=== PATIENT | female | born 1960 | race Two or more races ===

== ENCOUNTER 2024-07-14 09:30 | Inpatient (IN) | payer OTHER ==
[~2024-07-14] VITALS: Ht 160 cm; Wt 83.9 kg
[2024-07-14 11:28] LABS: URINE APPEARANCE Clear; URINE BILIRRUBIN Negative (NEGATIVE); URINE BLOOD Negative; URINE COLOR Yellow; URINE GLUCOSE Negative (NEGATIVE); URINE KETONE Trace (NEGATIVE); URINE LEUKOCYTE Negative; URINE NITRATE Negative; URINE PROTEIN Negative (NEGATIVE); URINE UROBILINOGEN 0.2 E.U./dl
[2024-07-14 11:32] LABS: URINE BACTERIA 1820.5 uL (0.0-1933); URINE EPITHELIAL CELLS 45.8 uL (0.0-38.8); URINE RBC 3.6 uL (0.0-20.8); URINE WBC 4.9 uL (0.0-23.2)
[2024-07-14 11:36] LABS: HEMATOCRIT 39.6 % (36.0-45.00); HEMOGLOBIN 13.5 g/dL (12.0-15.00); MEAN CELL VOLUME 90.2 fL (80.00-100.00); MEAN CORPUSCULAR HEMOGLOBIN 30.7 pg (27.00-32.0); MEAN CORPUSCULAR HGB CONC 34.1 g/dl (32.0-36.0); PLATELET COUNT 234 K/uL (150-450); RED BLOOD COUNT 4.39 M/uL (4.00-6.00); RED CELL DISTRIBUTION WIDTH 13.7 % (11.5-14.5)
[2024-07-14 11:37] LABS: URINE CAST 0.15 uL (0.0-1.40)
[2024-07-14 12:38] LABS: INR 0.99; PARTIAL THROMBOPLASTIN TIME 29.6 SECONDS (22.0-34.0); PROTHROMBIN TIME 10.8 SECONDS (9.0-11.5)
[2024-07-14 12:41] LABS: BILIRUBIN TOTAL 0.41 mg/dL (0.3-1.2); CALCIUM 9.7 mg/dL (8.5-10.1); CREATININE SERUM 0.7 mg/dL (0.55-1.02); GFR 85.07; GLOBULINA 3.3 G/DL (2.4-3.5); POTASSIUM 4.46 mEq/L (3.5-5.1); TOTAL PROTEIN 7.3 gm/dL (6.4-8.2); TSH 1.56 uIU/mL (0.358-3.74)
[2024-07-17] MEDS ORDERED: BUPIVACAINE HCL/Mpf 0.5% 10ML VIAL ONE ×2 (12:29→12:32)
[2024-07-17] MEDS ORDERED: LIDOCAINE HCL 1%/EPINEPHRINE 20ML VIAL IJ ONE ×2 (12:29→14:15)
[2024-07-17] MEDS ORDERED: CEFTRIAXONE SODIUM 2,000 MG VIAL ONE (12:30)
[2024-07-17] MEDS ORDERED: METRONIDAZOLE/SODIUM CHLORIDE 500 MG/100 ML PIGGYBACK IV ONE ×2 (12:30→14:15)
[2024-07-17] MEDS ORDERED: CEFTRIAXONE SODIUM 2,000 MG VIAL IV ONE (14:15)
[2024-07-17] MEDS ORDERED: BUPIVACAINE HCL 30 ML VIAL IJ ONE (14:15)
[2024-07-17] MEDS ORDERED: RINGERS SOLUTION,LACTATED 1,000 ML IV SCH (17:15)
[2024-07-17] MEDS ORDERED: TRAMADOL HCL 50 MG TABLET PO PRN (17:15)
[2024-07-17] MEDS ORDERED: MEPERIDINE HCL/PF 25 MG/ML VIAL IM PRN (17:15)
[2024-07-17] MEDS ORDERED: ONDANSETRON HCL 2 MG/ML VIAL IV PRN (17:15)
[2024-07-17] MEDS ORDERED: ACETAMINOPHEN 500 MG GEL..CAP PO SCH (18:00)
[2024-07-17] MEDS ORDERED: ONDANSETRON HCL 2 MG/ML VIAL ONE ×2 (18:48→20:29)
[2024-07-17] MEDS ORDERED: FAMOTIDINE/PF 20 MG/2 ML VIAL ONE (20:30)
[2024-07-17] MEDS ORDERED: SIMETHICONE 125 MG CAPSULE PO SCH (21:00)
[2024-07-17] MEDS ORDERED: FAMOTIDINE/PF 20 MG/2 ML VIAL IV PUSH SCH (21:00)
[2024-07-17 21:02] LABS: HEMATOCRIT 39.7 % (36.0-45.00); HEMOGLOBIN 13.2 g/dL (12.0-15.00); MEAN CELL VOLUME 91.8 fL (80.00-100.00); MEAN CORPUSCULAR HEMOGLOBIN 30.4 pg (27.00-32.0); MEAN CORPUSCULAR HGB CONC 33.2 g/dl (32.0-36.0); PLATELET COUNT 223 K/uL (150-450); RED BLOOD COUNT 4.32 M/uL (4.00-6.00); RED CELL DISTRIBUTION WIDTH 13.3 % (11.5-14.5)
[2024-07-17 21:22] LABS: ALBUMIN 3.6 gm/dL (3.4-5.0); CALCIUM 8.8 mg/dL (8.5-10.1); CREATININE SERUM 0.81 mg/dL (0.55-1.02); GFR 71.88; MAGNESIUM 1.9 mg/dL (1.8-2.4); PHOSPHOROUS 3.4 mg/dL (2.5-4.9); POTASSIUM 3.62 mEq/L (3.5-5.1)
[2024-07-18] MEDS ORDERED: GABAPENTIN 300 MG CAPSULE PO SCH (01:00)
[2024-07-18 06:36] LABS: HEMATOCRIT 37.3 % (36.0-45.00); HEMOGLOBIN 12.8 g/dL (12.0-15.00); MEAN CELL VOLUME 89.5 fL (80.00-100.00); MEAN CORPUSCULAR HEMOGLOBIN 30.7 pg (27.00-32.0); MEAN CORPUSCULAR HGB CONC 34.4 g/dl (32.0-36.0); PLATELET COUNT 242 K/uL (150-450); RED BLOOD COUNT 4.17 M/uL (4.00-6.00); RED CELL DISTRIBUTION WIDTH 13.3 % (11.5-14.5)
[2024-07-18 07:45] LABS: ALBUMIN 3.5 gm/dL (3.4-5.0); CREATININE SERUM 0.68 mg/dL (0.55-1.02); GFR 87.96; MAGNESIUM 2.1 mg/dL (1.8-2.4); PHOSPHOROUS 2.7 mg/dL (2.5-4.9); POTASSIUM 4.62 mEq/L (3.5-5.1)
[2024-07-18] MEDS ORDERED: LACTOBACILLUS ACIDOPHILUS 1 CAP CAP PO SCH (09:00)
[2024-07-18] MEDS ORDERED: POLYETHYLENE GLYCOL 3350 17 GM BLIST.PACK PO SCH (09:00)
[2024-07-18] MEDS ORDERED: MAGNESIUM CHLORIDE 70 MG TABLET.DR PO SCH (09:00)
[2024-07-18] MEDS ORDERED: PROMETHAZINE HCL 25 MG/ML AMPUL IM STA (14:51)
[2024-07-18] MEDS ORDERED: ENOXAPARIN SODIUM 40 MG/0.4 ML SYRINGE SUBCUTANEO SCH (17:00)
[2024-07-18] MEDS ORDERED: NAPH,MB-DB/K PH,MBDB 1 PKT PACKET PO SCH (17:00)
[2024-07-18] MEDS ORDERED: FAMOtidine 20 MG TABLET PO SCH (17:00)
[2024-07-19 08:15] LABS: HEMATOCRIT 36.1 % (36.0-45.00); HEMOGLOBIN 12.4 g/dL (12.0-15.00); MEAN CELL VOLUME 89.3 fL (80.00-100.00); MEAN CORPUSCULAR HEMOGLOBIN 30.6 pg (27.00-32.0); MEAN CORPUSCULAR HGB CONC 34.3 g/dl (32.0-36.0); PLATELET COUNT 227 K/uL (150-450); RED BLOOD COUNT 4.04 M/uL (4.00-6.00); RED CELL DISTRIBUTION WIDTH 13.5 % (11.5-14.5)
[2024-07-19 08:56] LABS: ALBUMIN 3.4 gm/dL (3.4-5.0); CALCIUM 8.8 mg/dL (8.5-10.1); CREATININE SERUM 0.84 mg/dL (0.55-1.02); GFR 68.93; MAGNESIUM 2.2 mg/dL (1.8-2.4); POTASSIUM 3.56 mEq/L (3.5-5.1)
[2024-07-19] MEDS ORDERED: ENALAPRILAT DIHYDRATE 1.25 MG/ML VIAL IV PRN (16:45)
[2024-07-19] MEDS ORDERED: POTASSIUM PHOS,M-BASIC-D-BASIC 18 MM in 0.9 % SODIUM CHLORIDE 250 ML IV NR (17:30)
[2024-07-19] MEDS ORDERED: NAPH,MB-DB/K PH,MBDB 1 PKT PACKET PO SCH (17:49)
[2024-07-20 06:38] LABS: HEMATOCRIT 36.8 % (36.0-45.00); HEMOGLOBIN 12.7 g/dL (12.0-15.00); MEAN CELL VOLUME 89.1 fL (80.00-100.00); MEAN CORPUSCULAR HEMOGLOBIN 30.8 pg (27.00-32.0); MEAN CORPUSCULAR HGB CONC 34.5 g/dl (32.0-36.0); PLATELET COUNT 223 K/uL (150-450); RED BLOOD COUNT 4.12 M/uL (4.00-6.00); RED CELL DISTRIBUTION WIDTH 13.7 % (11.5-14.5)
[2024-07-20 07:00] LABS: ALBUMIN 3.2 gm/dL (3.4-5.0); CALCIUM 8.7 mg/dL (8.5-10.1); CREATININE SERUM 0.73 mg/dL (0.55-1.02); GFR 81.05; MAGNESIUM 2.3 mg/dL (1.8-2.4); PHOSPHOROUS 3.3 mg/dL (2.5-4.9); POTASSIUM 3.72 mEq/L (3.5-5.1)
== END 2024-07-20 11:21 | disposition home or self-care (01) | DRG 330 ==
LOC: SURH 07-17 07:00 → O/R 07-17 10:00 → SURG 07-17 18:08 → SURH 07-17 19:30
PROVIDERS: ADMIT Colon & Rectal Surgery; ATTEND Colon & Rectal Surgery
PROC: 0DBP4ZZ Excision of Rectum, Percutaneous Endoscopic Approach (ICD-10-PCS; 2024-07-17)
PROC: 0DNN4ZZ Release Sigmoid Colon, Percutaneous Endoscopic Approach (ICD-10-PCS; 2024-07-17)
PROC: 0DJD8ZZ Inspection of Lower Intestinal Tract, Via Natural or Artificial Opening Endoscopic (ICD-10-PCS; 2024-07-17)
PROC: 0DTN4ZZ Resection of Sigmoid Colon, Percutaneous Endoscopic Approach (ICD-10-PCS; principal; 2024-07-17 07:00)
DX: K57.20 Diverticulitis of large intestine with perforation and abscess without bleeding (principal); K56.51 Intestinal adhesions [bands], with partial obstruction; R10.32 Left lower quadrant pain; E83.39 Other disorders of phosphorus metabolism; I10 Essential (primary) hypertension; Z88.6 Allergy status to analgesic agent

== ENCOUNTER 2025-08-26 04:31 | Emergency (ER) | payer OTHER ==
[~2025-08-26] VITALS: Ht 162.6 cm; Wt 88.5 kg
[2025-08-26] MEDS ORDERED: PROMETHAZINE HCL 50 MG/ML AMPUL IM STA (05:44)
[2025-08-26] MEDS ORDERED: FAMOTIDINE/PF 20 MG/2 ML VIAL IV PUSH STA (05:44)
[2025-08-26] MEDS ORDERED: 0.9 % SODIUM CHLORIDE 1,000 ML IV ONE (05:45)
[2025-08-26] MEDS ORDERED: PROMETHAZINE HCL 50 MG/ML AMPUL IM ONE (06:13)
[2025-08-26] MEDS ORDERED: FAMOTIDINE/PF 20 MG/2 ML VIAL ONE (06:13)
[2025-08-26 07:06] LABS: BASO % 0.2 % (0.1-1.2); EOS # 0.14 (0.04-0.54); EOS % 1.0 % (0.7-7.0); LYMPH # 1.52 (1.18-3.74); LYMPH % 10.9 % (19.3-53.1); MEAN PLATELET VOLUME 10.60 fl (9.4-12.4); MONO # 0.74 (0.24-0.82); MONO % 5.3 % (4.7-12.5); NEUT # 11.43 (1.56-6.13); NEUT % 82.4 % (34.0-71.1); RED CELL DISTRIBUTION WIDTH 12.8 % (11.6-14.4)
[2025-08-26 07:28] LABS: ALT/SGPT 57.0 U/L (12-78); AST/SGOT 24.0 U/L (15-37); BILIRUBIN TOTAL 0.34 mg/dL (0.3-1.2); BUN CREA RATIO 17.0 (7.0-25.0); CREATININE SERUM 0.83 mg/dL (0.55-1.02); GFR 69.43; GLOBULINA 3.9 G/DL (2.4-3.5); GLUCOSE FASTING 137.0 mg/dL (65-100); OSMOLALITY SERUM 289.0 MOSM/KG (275-295)
[2025-08-26 08:24] LABS: URINE APPEARANCE Cloudy; URINE BILIRRUBIN Negative (NEGATIVE); URINE BLOOD Negative; URINE COLOR Yellow; URINE GLUCOSE Negative (NEGATIVE); URINE KETONE Negative (NEGATIVE); URINE LEUKOCYTE Negative; URINE NITRATE Negative; URINE PROTEIN Trace (NEGATIVE); URINE UROBILINOGEN 0.2 E.U./dl
[2025-08-26 08:29] LABS: URINE BACTERIA 5775.5 uL (0.0-1933); URINE EPITHELIAL CELLS 90.2 uL (0.0-38.8); URINE RBC 14.3 uL (0.0-20.8); URINE WBC 13.8 uL (0.0-23.2)
[2025-08-26 08:33] LABS: URINE CAST 0.29 uL (0.0-1.40)
[2025-08-26] MEDS ORDERED: HYOSCYAMINE SULFATE 0.125 MG TAB.SUBL PO ONE (11:15)
[2025-08-26] MEDS ORDERED: HYOSCYAMINE SULFATE 0.125 MG TAB.SUBL ONE ×2 (11:18→11:20)
[2025-08-26] MEDS ORDERED: INTESTINEX680 M1 PO (13:02)
[2025-08-26] MEDS ORDERED: PEPCID AC20 MG PO (13:02)
[2025-08-26] MEDS ORDERED: ZOFRAN8 MG PO (13:02)
== END 2025-08-26 13:30 | disposition home or self-care (01) ==
LOC: ER 04:32
PROVIDERS: General Practice
DX: K52.89 Other specified noninfective gastroenteritis and colitis (principal); Z88.6 Allergy status to analgesic agent; Z88.8 Allergy status to other drugs, medicaments and biological substances